=== PATIENT | male | born 1970 | race Caucasian/White ===

== ENCOUNTER 2017-10-31 19:04 | Emergency (ER) | payer MEDICAID, SELFPAY ==
[2017-10-31 19:08] VITALS: BP 138/74; PULSE 118; RESP 16; TEMP 36.4; O2SAT 96
--- NOTE | 2017-10-31 20:21 | ED.GENADUL_ITS ---
Discharge Plan Disposition Patient Disposition: HOME Condition: Stable Discharge Details Chief Complaint: Urinary Clinical Impression: Chlamydia contact, treated, Gonorrhea contact, treated Primary Care Provider: Alex Cummins ED Provider: Lisbet Sanders Home Meds and New Rx's Prescriptions: No Action No Known Home Meds RF: 0 Discharge Instructions Instructions: Chlamydia (ED), Safe Sex (ED) Additional Instructions: Encourage hydration. Please follow-up with primary care this week, call them Thursday. We will contact with any positive results from your gonorrhea/ chlamydia and tick panel that are still pending. If you develop fever/chills, chest pain, shortness of breath, penile discharge, testicular pain or other new/ worsening symptoms please seek care urgently once again. Please contact all of your recent sexual partners that may have been in the time since STD exposure. Referrals: Alex Cummins MD [Primary Care Provider] - Discharge Data Discharge Date/Time-TO BE ENTERED AT DEPARTURE: 10/31/17 22:13 Medical Decision Making MDM Narrative Medical decision making narrative: Patient presents today with chief complaint of STD exposure. Reports that recent partner was diagnosed with chlamydia. Last had sexual encounter with her 1 month ago. I did advise that he contact his other partners to discuss diagnosis. Patient will be treated prophylactically with azithromycin and ceftriaxone. Patient is also endorsing 1+ months of increased back pain, fatigue, myalgias. Unknown if he has had fevers. He reports poor appetite. Denies any abdominal pain. On exam, lungs are clear. Regular rate and rhythm. No chest pain, no shortness of breath. No abdominal pain on exam. He does endorse back pain but this seems to be chronic nature and is not acutely changed. This pain can radiate down the right leg. Patient does have her history of herpes. Denies any recent outbreak. Denies any penile discharge. No testicular pain. No rash. With his diffuse symptoms feel that baseline labs a CBC, CMP, TSH is appropriate. Also obtain HIV as the patient does have new diagnosis of presumed STD infection has had multiple partners. Also obtain a tick panel as the patient works in the [employer]. No known tick exposure, no known bull's-eye rash. Patient noted to be tachycardic at 118. He appears slightly anxious, reports anxiety around currently complaint and that I hate going to the doctors. Will reassess this. Patient was exposed to chlamydia and presumed gonococcal infection, I will be treated with 1 g of azithromycin 250 mg of IM ceftriaxone. Discussed splinted the patient is in agreement CBC, chemistry, TSH are within normal limits. STD, tick panel are pending. Discussed findings of the patient's laboratory evaluation with the patient. He is very reassured that at this point there is no acute abnormality. However, we did discuss the pending results that we are contacting him with any positive results. I did encourage him to follow-up with his primary care physician this week for reevaluation regarding his chronic change in appetite, sleep and general feeling unwell. I also reassured him that on physical exam I am not noting any acute abnormalities. He does report chronic back pain. Did have surgical intervention this past spring. It initially felt improved but reports that over the past several months his pain has began reoccurring. I did advise follow-up with his surgeon which the patient had been planning on contacting her regarding this pain anyway. I did encourage that he continue with his improved lifestyle. In an effort to try to avoid the doctor, the patient reports when he started having the symptoms he stopped smoking, began drinking more water and having a more healthy diet. However, patient has since started smoking again. I did encourage cessation. He was given strict return precautions. We will contact him regarding any positive lab results. All of his questions and concerns were addressed, he is in agreement with this plan. He will contact sexual partners to discuss his exposure. At the time of discharge heart rate was 85. HPI - General Adult General Mode of arrival: ambulatory . Date/Time Provider Initiated Documentation: 10/31/17 19:36 . Limitations to Documentation: no limitations . Information obtained by: patient and family . HPI Narrative: Patient is a 47-year-old male, coming in by son, with chief complaint of exposure to chlamydia. He reports that he was contacted earlier today by woman he was sexually active with approximately a month ago who was diagnosed with gonorrhea and chlamydia. He denies any penile discharge. Denies any testicular pain. Denies any pain in his testicles. However, the patient is endorsing overall feels like crap. States that this is been going on for the past 1-2 months. He denies any abdominal pain. States he has chronic pain in his back that radiates into the right leg. States that he had surgery on this in March and since that time his had waxing and waning discomfort. Also reports that he has chronic pain is not addressed at this time for surgery. Is unclear if he had any fevers or chills. States that his appetite has been down but denies any vomiting. Patient does have history of genital herpes. No other STD history that he is aware of. He reports he has not been tested for STDs in the past 12 years Related Data Home Medications Medication Instructions Recorded Confirmed Unknown [No Known Home Meds] 10/31/17 10/31/17 Allergies Allergy/AdvReac Type Severity Reaction Status Date / Time No Known Allergies Allergy Unverified 10/31/17 19:12 General Stated Complaint: Urinary JOSEMANUEL: 4 Review of Systems Constitutional Reports as per HPI, Reports body ache(s), Reports chills, Reports difficulty sleeping, Reports fatigue, Denies fever(s), Denies headache(s), Reports poor appetite and Denies weakness Eyes Patient Denies change in vision ENT Denies vertigo and Denies headache(s) Cardiovascular Denies chest pain, Denies chest pain at rest, Denies chest pain with activity, Denies lightheadedness and Denies dyspnea Respiratory Denies cough and Denies dyspnea Gastrointestinal Reports as per HPI Genitourinary Reports as per HPI, Denies hematuria, Denies difficulty urinating, Denies difficulty with ejaculations, Denies genital lesions, Denies genital pain, Denies flank pain, Denies penile discharge, Denies scrotal swelling, Denies testicular mass, Denies testicular pain, Denies urinary frequency and Denies urinary urgency Musculoskeletal Reports as per HPI and Reports tingling (reports chronic tingling in the right leg associated with bakc surgery, no recent change in this) Integumentary/Breasts Reports system reviewed and no additional complaints, except as docu, Denies lesions, Denies erythema and Denies rash Neurologic Reports system reviewed and no additional complaints, except as docu, Denies burning sensations, Denies vertigo, Denies headache(s), Reports tingling ( reports chronic tingling in the right leg associated with bakc surgery, no recent change in this) and Denies weakness Psychiatric Reports as per HPI, Reports abnormal sleep pattern, Reports change in appetite and Reports mood swings (associates with fatigue) Endocrine Reports fatigue [facility] Social History Smoking/Tobacco Use Status: Current every day Exam Const General: cooperative, healthy appearing, comfortable, no acute distress, well developed and well groomed Nutritional Appearance: average body habitus Orientation: alert and awake HENMT Head: normal to inspection Mouth: oral mucosae normal Throat: posterior oropharynx normal Eyes General: appearance normal, both eyes and all related structures Resp Effort & Inspection: normal respiratory effort, able to speak in complete sentences and no respiratory distress Auscultation: clear to auscultation bilaterally Cardio Rate: regular rate Rhythm: regular rhythm Heart Sounds: S1 normal and S2 normal GI Inspection: normal to inspection and non-distended Palpation: not firm, no guarding, not rigid and nontender Auscultation: normal bowel sounds Back/Spine/Pelvis Back: no CVA tenderness Thoracic/Lumbar Spine: surgical scar(s) present and pain with thoraco-lumbar ROM Skin General skin exam: no rashes or lesions noted Neuro General: alert and awake Cognition: normal cognition Speech: speech normal Gait: normal gait Motor: muscle tone normal throughout and strength 5/5 throughout Sensory Exam: no sensory deficits noted Psych Appearance: grossly normal Mental Status: mental status grossly normal Speech and Movement: speech and movement normal Mood: congruent mood Affect: normal affect Attitude: cooperative Thought Process: normal Course Vital Signs Temperature 36.4 C L 10/31/17 19:08 Pulse 118 H 10/31/17 19:08 Respiratory Rate 16 10/31/17 19:08 Blood Pressure 138/74 10/31/17 19:08 Pulse Oximetry 96 10/31/17 19:08 Temperature 36.4 C L 10/31/17 19:08 Pulse 118 H 10/31/17 19:08 Respiratory Rate 16 10/31/17 19:08 Blood Pressure 138/74 10/31/17 19:08 Pulse Oximetry 96 10/31/17 19:08
[2017-10-31 21:05] LABS: Abs Immature Grans 0.02 k/cumm (0.0-0.09); Absolute Basophil Count 0.01 k/cumm (0.0-0.2); Absolute Lymphocyte Count 2.69 k/cumm (1.2-3.4); Absolute Neutrophil Count 3.96 k/cumm (1.2-6.7); Basophils % 0.1; HCT 44.1 % (40.0-50.0); HGB 15.2 g/dL (13.5-17.5); Immature Grans % 0.3; Lymphocytes % 35.5; Mean Corp. HGB Concentration 34.5 g/dL (32.0-36.0); Mean Corpuscular Hemoglobin 30.5 pg (27.0-33.0); Mean Corpuscular Volume 88.4 fL (80-95); Mean Platelet Volume 9.6 fL (8.0-11.0); Monocytes % 7.9; Neutrophils % 52.2; Platelet Count 283 x1000/uL (130-400); RBC 4.99 m/cumm (4.50-6.00); White Blood Cell Count 7.58 k/cumm (4.4-10.8)
[2017-10-31 21:20] LABS: TSH (W/Ref FT4) 1.25 uIU/mL (0.358-3.74)
[2017-10-31 21:48] LABS: ALT 24 U/L (12-78); AST 13 U/L (15-37); Alkaline Phosphatase 82 U/L (46-116); Anion Gap 10.6 mmol/L (3-11); BUN 18 mg/dL (7-18); Bilirubin, Total 0.4 mg/dL (0.2-1.0); CO2 25.4 mmol/L (21.0-32.0); CREATININE 1.01 mg/dL (0.70-1.30); Calcium 9.1 mg/dL (8.5-10.1); Chloride 100 mmol/L (98-107); Glucose 108 mg/dL (70-100); Sodium 136 mmol/L (136-145)
[2017-10-31] MEDS: cefTRIAXone 250 MG VIAL IM (21:58)
[2017-10-31] MEDS: Azithromycin 250 MG TAB 1000 MG PO (21:58)
[2017-10-31 22:08] VITALS: BP 126/74; PULSE 85; RESP 16; O2SAT 97
[2017-11-03 10:55] LABS: Lyme Ab w Rflx to Lyme Confirm Negative
[2017-11-03 14:44] LABS: Chlamydia Result Negative; GC Result Negative
[2017-11-03 23:01] LABS: Anaplasma phagocytophilum Negative (Negative); B. miyamotoi PCR Negative (Negative); Babesia divergens/MO-1 Negative (Negative); Babesia duncani Negative (Negative); Babesia microti Negative (Negative); Ehrlichia chaffeensis Negative (Negative); Ehrlichia ewingii/canis Negative (Negative); Ehrlichia muris eauclairensis Negative (Negative)
== END 2017-10-31 22:13 | disposition home or self-care (01) ==
PROVIDERS: Emergency Provider Physician Assistant; PCP General Practice
DX: Z20.828 Contact with and (suspected) exposure to other viral communicable diseases (principal); Z20.2 Contact with and (suspected) exposure to infections with a predominantly sexual mode of transmission
CPT/HCPCS: 36415; 80053; 87491; 87591; 96372; 99284; 84443; 85025; 86618; 87798; J0696

== ENCOUNTER 2018-01-29 01:40 | Outpatient (CLI) | payer MEDICAID, SELFPAY ==
--- NOTE | 2018-01-29 10:49 | DI.RAD_ITS ---
SYMPTOM/DIAGNOSIS: BACK PAIN, M54.9, LOW BACK PAIN, M54.5, LUMBAR PARS DEFECT, PRE MRI APPROVAL LUMBAR SPINE: AP, lateral and bilateral oblique views. Comparison CT scan is 01/30/17. There is L 5 spondylolysis and grade I spondylolisthesis of L 5 on S 1. There is otherwise normal alignment. No acute fractures or subluxations are seen. The disc heights are well maintained. Small endplate osteophytes are seen at L 2-3 and L 3-4. Degenerative changes of the facets are seen at L 4-5 and L 5-S 1. IMPRESSION: L 5 spondylolysis and grade I spondylolisthesis of L 5 on S 1. Mild degenerative changes of the lumbar spine.
== END 2018-01-29 02:00 ==
PROVIDERS: PCP General Practice; Visit Provider Neurological Surgery
DX: M54.5 Low back pain (principal); M43.06 Spondylolysis, lumbar region; M43.17 Spondylolisthesis, lumbosacral region; M47.817 Spondylosis without myelopathy or radiculopathy, lumbosacral region
CPT/HCPCS: 72110

== ENCOUNTER 2018-03-01 00:56 | Outpatient (CLI) | payer MEDICAID, SELFPAY ==
--- NOTE | 2018-03-01 14:04 | DI.RAD_ITS ---
SYMPTOMS/DIAGNOSIS: POSSIBLE INJURY TO EYE WITH METALLIC FILING SINCE LAST MRI ORBITS: Frontal and lateral views. No radiopaque foreign bodies are seen in the orbits. IMPRESSION: No evidence of radiopaque foreign bodies seen in the orbits.
== END 2018-03-01 01:16 ==
PROVIDERS: PCP General Practice; Visit Provider Neurological Surgery
DX: Z13.89 Encounter for screening for other disorder (principal); M54.5 Low back pain; M79.606 Pain in leg, unspecified
CPT/HCPCS: 70030

== ENCOUNTER 2018-03-22 11:39 | Emergency (ER) | payer MEDICAID, SELFPAY ==
[2018-03-22 11:49] VITALS: BP 165/108; PULSE 82; RESP 18; TEMP 36.8; O2SAT 99
--- NOTE | 2018-03-22 11:57 | W.ED.GENAD ---
Discharge Plan Disposition Patient Disposition: HOME Condition: Stable Discharge Details Chief Complaint: PsychEval Clinical Impression: Chronic back pain, Depression Primary Care Provider: Alex Cummins ED Provider: Mary Jo Pierre Home Meds and New Rx's Prescriptions: New oxycodone-acetaminophen [Percocet] 5-325 mg tablet 1 tab PO Q8H PRN PRN (Reason: pain) Qty: 5 RF: 0 Discharge Instructions Instructions: Oxycodone/Acetaminophen (By mouth), Depression (ED), Suicide Prevention for Adults (ED), Chronic Back Pain (ED) Additional Instructions: Please return immediately to the emergency department if you develop any new or worsening symptoms or if you become otherwise concerned. It is extremely important that you follow-up with Dr. Cummins tomorrow at 9:30 AM for evaluation prior to having your MRIs with sedation as we discussed. It is also extremely important that you make an appointment to be seen in the pain clinic as soon as possible, this will require preauthorization from Dr. Cummins. Please call [phone] if you have any difficulty establishing this appointment. Referrals: Alex Cummins MD [Primary Care Provider] - Discharge Data Discharge Date/Time-TO BE ENTERED AT DEPARTURE: 03/22/18 16:33 Medical Decision Making Yayo Jacques is a 48-year-old man with history of chronic back pain presenting to the emergency department with depression and chronic back pain for years, worse in the past few months without acute change. On exam patient is very well and nontoxic appearing. He has normal neuro exam. Concern for chronic back pain and depression. Exam/history is not consistent with cauda equina syndrome, epidural abscess/hematoma, other cord compression, acute aortic pathology, other acute emergent life/limb threatening process. I do not suspect that patient has any true suicidal ideation after my discussion with him, however given his statement that he made to his PCP, plan to have mental health evaluate the patient. We will also plan for CT of the lumbar spine to look for new bony pathology given prior surgery and gradual worsening of pain. Case management involved for follow-up planning. I did speak to the patient's neurosurgeon's office staff, who stated that patient needed preop clearance for MRI with sedation, which they would then schedule at [facility]. I also did speak with Dr. Cummins, patient's PCP, who stated that he felt that patient's chronic pain would best be managed at the pain clinic. Patient scheduled for preop evaluation by Dr. Cummins tomorrow a.m. As patient had been to [facility] pain clinic before and did not feel that he had satisfactory visit, plan for patient to see pain clinic at [facility]. CT shows no acute process per radiology. Per mental health, patient statement of suicidality was manipulative, they do not have concern for risk of acute suicidality, which is consistent with my evaluation the patient. I had a lengthy discussion with the patient regarding outpatient plans, home care, return to emergency department precautions, which he verbalized understanding of and is amenable to. Medical Records Medical records reviewed: Yes I reviewed the patient's medical records. HPI General Mode of arrival: ambulatory. Date/Time Provider Initiated Documentation: 03/22/18 11:57. Limitations to Documentation: no limitations. Information obtained by: patient, RN notes reviewed and old records reviewed. HPI Narrative: Yayo Jacques is a 48-year-old man with history of chronic back pain presenting to the emergency department with continued chronic back pain. Patient saw his PCP Dr. Cummins this morning for his chronic back pain. Patient was sent to the emergency department by Dr. Cummins for evaluation for suicidality, he stated to Dr. Cummins because his back pain. Patient reports to me that he has been having chronic worsening back pain for years. 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 Patient had back surgery [address] Potter[address] Patient reports that he did have some improvement of his back pain for a few months after his surgery, however over this past summer his back pain has returned and he feels it is worse than it was before the surgery was performed. Pain has been worsening gradually over the past few months. He has continued to perform manual labor, but has not had any acute trauma. He denies any new numbness or tingling or weakness of his legs. He has had no changes in his urination or bowel habits. Patient reports that he saw his neurosurgeon in January 2018, who recommended that he have an MRI. Patient did attempt to have MRI performed, however the MRI was unable to obtain secondary to his claustrophobia. He was told that he needed to have a sedated MRI performed at [facility], however he is unsure of how or why this is supposed to be scheduled. Patient reports that his neurosurgeon has told him that she does not manage chronic pain, and he see his PCP for this. Patient reports that his PCP has told him that he should be managed for his chronic pain by pain specialist. Patient reports that he has seen a pain specialist in the past who performed injections, and this did not improve his pain anyway. Patient reports that he has been using ibuprofen and Tylenol at home with minimal improvement. Patient states to me that he has no intention of actually harming himself. Patient reports that he has a child, and would never hurt himself because of this. He states that he does not have access to firearms. He statesthat he does feel depressed by his back pain, and feels that he does not have a doctor to turn to for help. Related Data Home Medications Medication Instructions Recorded Confirmed oxycodone-acetaminophen [Percocet] 1 tab PO Q8H PRN PRN #5 tab 03/22/18 Previous Rx's Medication Instructions Recorded oxycodone-acetaminophen [Percocet] 1 tab PO Q8H PRN PRN #5 tab 03/22/18 Allergies Allergy/AdvReac Type Severity Reaction Status Date / Time No Known Allergies Allergy Unverified 03/22/18 11:53 General Stated Complaint: Nk/Back Pain JOSEMANUEL: 3 Review of Systems Review of Systems Constitutional: denies fevers Eyes: denies eye pain ENT: denies facial pain, dental pain, sore throat Cardiovascular: denies chest pain, edema Respiratory: denies SOB, cough GI: denies abdominal pain, vomiting, diarrhea, constipation : denies flank pain, urinary hesitancy/frequency/incontinence MSK: denies neck pain, myalgias, reports chronic back pain, chronic unchanged left knee pain Skin: denies rash Neuro: denies headaches, weakness, reports chronic intermittent numbness of left leg unchanged from baseline Psych: denies SI, HI, reports depression PFSH Social History Smoking/Tobacco Use Status: Current every day Exam Narrative Exam Narrative: Constitutional: well and [id number], pleasant, conversing normally HENT: head atraumatic, normocephalic normal inspection, mucous membranes moist Eyes: conjunctiva normal, sclera normal, pupils 3mm b/l Neck: no stridor, normal ROM, trachea midline Chest: normal inspection Resp: normal work of breathing, LCTAB Cardio: normal rate, normal rhythm, no murmur appreciated GI: abdomen soft, non-tender, non-distended Back: normal inspection, no rash, diffuse tenderness palpation of the lumbar spine, focal tenderness at L3-L4, diffuse tenderness to palpation of bilateral lumbar paraspinals. No thoracic tenderness. No edema Skin: warm, dry, normal color, no rash Neuro: alert, not altered, motor 5 out of 5 bilateral lower extremities, normal gait, normal tone Ext: no edema Psych: Somewhat depressed mood, normal affect, normal behavior, normal speech, good eye contact, no melanie, no hallucinations, no SI, no HI Course Vital Signs Temperature 36.8 C 03/22/18 11:49 Pulse 82 03/22/18 11:49 Respiratory Rate 18 03/22/18 11:49 Blood Pressure 165/108 H 03/22/18 11:49 Pulse Oximetry 99 03/22/18 11:49 Temperature 36.8 C 03/22/18 11:49 Temperature Source Temporal Artery Scan 03/22/18 11:49 Pulse 82 03/22/18 11:49 Respiratory Rate 18 03/22/18 11:49 Respiratory Effort Non-Labored 03/22/18 11:51 Blood Pressure 165/108 H 03/22/18 11:49 Blood Pressure Position Sitting 03/22/18 11:49 Pulse Oximetry 99 03/22/18 11:49 Oxygen Delivery Method Room Air 03/22/18 11:49 Oxygen Flow Rate 0 03/22/18 11:49 Pain Level 10 03/22/18 11:49
--- NOTE | 2018-03-22 12:20 | NUR.NOTE ---
patient sitting in view of the nurses station and friend in with patient Nursing Note:
--- NOTE | 2018-03-22 12:46 | DI.CT_ITS ---
SYMPTOMS/DIAGNOSIS: ACUTE ON CHRONIC BACK PAIN CT OF THE LUMBAR SPINE: Comparison is made with [id number]. Again noted is bilateral L 5 spondylolysis and grade I L 5 - S 1 spondylolisthesis. There is stable loss of disc height at this level and mild disc bulging. The remaining discs appear grossly intact. There is no significant disc bulging or gross evidence of a disc herniation. IMPRESSION: Stable L 5 spondylolysis and L 5 - S1 spondylolisthesis. No acute abnormality.
[2018-03-22] MEDS: oxyCODONE 5 MG TAB PO (13:13)
--- NOTE | 2018-03-22 13:26 | NUR.NOTE ---
patient reported to MD Pierre of [facility], patient moved to room 9 in safety clothes with RN provding q 15 minute safety checks Nursing Note:
--- NOTE | 2018-03-22 14:02 | PDOC.ERCMPRO ---
Care Management Progress Note 03/22-Dr. Buster Pierre requested assistance with Yayo needing a preop physical for a sedated MRI. (Thoracic spine w/o contrast, lumbar spine with and w/o contrast) Dr. Potter office is scheduling and her office requested that this CM make appt with Dr. Cummins for the preop physical. Called Dr. Cummins's office and they will see Yayo tomorrow at [address] Pierre also discussed Yayo going to the pain clinic. Called Pain clinic and spoke with Chantal. Chantal looked Yayo up and he has not been in this clinic so he will need a referral from Dr. Cummins. Called Dr. Cummins and his office will send a referral through to the pain clinic. Please see Dr. Main Pierre's note regarding pain issues. Yayo was seen in Dr. Cummins's office this morning as he has been having back pain and no medication for it. Yayo stated to Dr. Cummins that he was going to kill himself because no one was helping him. Dr. Main Pierre is medically clearing Yayo and then he will be seen by [facility]. Dr. Pierre aware of the above and in agreement with appts to date.
--- NOTE | 2018-03-22 14:43 | CMPROGNOTE_ITS ---
Care Management Progress Note 03/22-Dr. Buster Pierre requested assistance with Yayo needing a preop physical for a sedated MRI. (Thoracic spine w/o contrast, lumbar spine with and w/o contrast) Dr. Potter office is scheduling and her office requested that this CM make appt with Dr. Cummins for the preop physical. Called Dr. Cummins's office and they will see Yayo tomorrow at [address] Pierre also discussed Yayo going to the pain clinic. Called Pain clinic and spoke with Chantal. Chantal looked Yayo up and he has not been in this clinic so he will need a referral from Dr. Cummins. Called Dr. Cummins and his office will send a referral through to the pain clinic. Please see Dr. Main Pierre's note regarding pain issues. Yayo was seen in Dr. Js navarro's office this morning as he has been having back pain and no medication for it. Yayo stated to Dr. Cummins that he was going to kill himself because no one was helping him. Dr. Main Pierre is medically clearing Yayo and then he will be seen by [facility]. Dr. Pierre aware of the above and in agreement with appts to date.
--- NOTE | 2018-03-22 14:51 | NUR.NOTE ---
PATIENT TO di WITH PATIENT OBSERVER Nursing Note:
--- NOTE | 2018-03-22 15:36 | PDOC.MHCN ---
Date of service: 03/22/18 Time of Service: 15:37 Mental Health Crisis Note Presenting Issue How did you arrive at the ED and why did you come: Yayo came to [facility] upon his surgeon's recommendations due to he discussing the results of some medical procedures. This led to he reporting that he would take his life, so he ended up at [facility] emergency room. Precipitating Factors Following the efforts made by [facility] emergency room care team, he reported feeling much better about his prognosis and care plan. He denies a history of suicidal ideation, planning, or intent. He denies a history of attempts of suicide or homicide. 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 Disposition BEHAVIOR: insightful, well spoken, futuristic EYE CONTACT: good MOOD: euthymic AFFECT: full APPETITE: none reported SLEEP(trouble falling/staying asleep: none reported Plan Yayo will be released on his own. He declined mental health services and did not feel these were in any way part of his problem. He did report that he could call if he needed to, but reported he was happy with the follow-up medical appointments he now has. Therefore, he will follow-up with the medical services identified and mental health consult will come from the medical treatment community or the patient himself on an as needed basis at this time. Signature Clinician's Name/Title: Cyrus Gonzalez MA [facility] [facility]
--- NOTE | 2018-03-22 15:45 | PDOC.MHCN_ITS ---
Date of service: 03/22/18 Time of Service: 15:37 Mental Health Crisis Note Presenting Issue How did you arrive at the ED and why did you come: Yayo came to [facility] upon his surgeon's recommendations due to he discussing the results of some medical procedures. This led to he reporting that he would take his life, so he ended up at [facility] emergency room. Precipitating Factors Following the efforts made by [facility] emergency room care team, he reported feeling much better about his prognosis and care plan. He denies a history of suicidal ideation, planning, or intent. He denies a history of attempts of suicide or h omicide. 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 Disposition BEHAVIOR: insightful, well spoken, futuristic EYE CONTACT: good MOOD: euthymic AFFECT: full APPETITE: none reported SLEEP(trouble falling/staying asleep: none reported Plan Yayo will be released on his own. He declined mental health services and did not feel these were in any way part of his problem. He did report that he could call if he needed to, but reported he was happy with the follow-up medical appointments he now has. Therefore, he will follow-up with the medical services identified and mental health consult will come from the medical treatment community or the patient himself on an as needed basis at this time. Signature Clinician's Name/Title: Cyrus Gonzalez MA [facility]
--- NOTE | 2018-03-22 15:58 | NUR.NOTE ---
patient cleared by psych, patient given clothes and coffee, awaiting diagnostics Nursing Note:
--- NOTE | 2018-03-22 16:31 | NUR.NOTE ---
patient rewceived medication and follow up instruciton per MD order , patient teresa with friend Nursing Note:
[2018-03-22 16:32] VITALS: BP 158/104; PULSE 84; RESP 18; TEMP 36.4; O2SAT 97
--- NOTE | 2018-03-30 11:19 | ED.GENADUL_ITS ---
Discharge Plan Disposition Patient Disposition: HOME Condition: Stable Discharge Details Chief Complaint: PsychEval Clinical Impression: Chronic back pain, Depression Primary Care Provider: Alex Cummins ED Provider: Mary Jo Pierre Home Meds and New Rx's Prescriptions: New oxycodone-acetaminophen [Percocet] 5-325 mg tablet 1 tab PO Q8H PRN PRN (Reason: pain) Qty: 5 RF: 0 Discharge Instructions Instructions: Oxycodone/Acetaminophen (By mouth), Depression (ED), Suicide Prevention for Adults (ED), Chronic Back Pain (ED) Additional Instructions: Please return immediately to the emergency department if you develop any new or worsening symptoms or if you become otherwise concerned. It is extremely important that you follow-up with Dr. Cummins tomorrow at 9:30 AM for evaluation prior to having your MRIs with sedation as we discussed. It is also extremely important that you make an appointment to be seen in the pain clinic as soon as possible, this will require preauthorization from Dr. Cummins. Please call [phone] if you have any difficulty establishing this appointment. Referrals: Alex Cummins MD [Primary Care Provider] - Discharge Data Discharge Date/Time-TO BE ENTERED AT DEPARTURE: 03/22/18 16:33 Medical Decision Making Yayo Jacques is a 48-year-old man with history of chronic back pain presenting to the emergency department with depression and chronic back pain for years, worse in the past few months without acute change. On exam patient is very well and nontoxic appearing. He has normal neuro exam. Concern for chronic back pain and depression. Exam/history is not consistent with cauda equina syndrome, epidural abscess/hematoma, other cord compression, acute aortic pathology, other acute emergent life/limb threatening process. I do not suspect that patient has any true suicidal ideation after my discussion with him, however given his statement that he made to his PCP, plan to have mental health evaluate the patient. We will also plan for CT of the lumbar spine to look for new bony pathology given prior surgery and gradual worsening of pain. Case management involved for follow-up planning. I did speak to the patient's neurosurgeon's office staff, who stated that patient needed preop clearance for MRI with sedation, which they would then schedule at [facility]. I also did speak with Dr. Cummins, patient's PCP, who stated that he felt that patient's chronic pain would best be managed at the pain clinic. Patient scheduled for preop evaluation by Dr. Cummins tomorrow a.m. As patient had been to [facility] pain clinic before and did not feel that he had satisfactory visit, plan for patient to see pain clinic at [facility]. CT shows no acute process per radiology. Per mental health, patient statement of suicidality was manipulative, they do not have concern for risk of acute suicidality, which is consistent with my evaluation the patient. I had a lengthy discussion with the patient regarding outpatient plans, home care, return to emergency department precautions, which he verbalized understanding of and is amenable to. Medical Records Medical records reviewed: Yes I reviewed the patient's medical records. HPI General Mode of arrival: ambulatory . Date/Time Provider Initiated Documentation: 03/22/18 11:57 . Limitations to Documentation: no limitations . Information obtained by: patient, RN notes reviewed and old records reviewed . HPI Narrative: Yayo Jacques is a 48-year-old man with history of chronic back pain presenting to the emergency department with continued chronic back pain. Patient saw his PCP Dr. Cummins this morning for his chronic back pain. Patient was sent to the emergency department by Dr. Cummins for evaluation for suicidality, he stated to Dr. Cummins because his back pain. Patient reports to me that he has been having chronic worsening back pain for years. 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 Patient had back surgery [address] Potter[address] Patient reports that he did have some improvement of his back pain for a few months after his surgery, however over this past summer his back pain has returned and he feels it is worse than it was before the surgery was performed. Pain has been worsening gradually over the past few months. He has continued to perform manual labor, but has not had any acute trauma. He denies any new numbness or tingling or weakness of his legs. He has had no changes in his urination or bowel habits. Patient reports that he saw his neurosurgeon in January 2018, who recommended that he have an MRI. Patient did attempt to have MRI performed, however the MRI was unable to obtain secondary to his claustrophobia. He was told that he needed to have a sedated MRI performed at [facility], however he is unsure of how or why this is supposed to be scheduled. Patient reports that his neurosurgeon has told him that she does not manage chronic pain, and he see his PCP for this. Patient reports that his PCP has told him that he should be managed for his chronic pain by pain specialist. Patient reports that he has seen a pain specialist in the past who performed injections, and this did not improve his pain anyway. Patient reports that he has been using ibuprofen and Tylenol at home with minimal improvement. Patient states to me that he has no intention of actually harming himself. Patient reports that he has a child, and would never hurt himself because of this. He states that he does not have access to firearms. He statesthat he does feel depressed by his back pain, and feels that he does not have a doctor to turn to for help. Related Data Home Medications Medication Instructions Recorded Confirmed oxycodone-acetaminophen [Percocet] 1 tab PO Q8H PRN PRN #5 tab 03/22/18 Previous Rx's Medication Instructions Recorded oxycodone-acetaminophen [Percocet] 1 tab PO Q8H PRN PRN #5 tab 03/22/18 Allergies Allergy/AdvReac Type Severity Reaction Status Date / Time No Known Allergies Allergy Unverified 03/22/18 11:53 General Stated Complaint: Nk/Back Pain JOSEMANUEL: 3 Review of Systems Review of Systems Constitutional: denies fevers Eyes: denies eye pain ENT: denies facial pain, dental pain, sore throat Cardiovascular: denies chest pain, edema Respiratory: denies SOB, cough GI: denies abdominal pain, vomiting, diarrhea, constipation : denies flank pain, urinary hesitancy/frequency/incontinence MSK: denies neck pain, myalgias, reports chronic back pain, chronic unchanged left knee pain Skin: denies rash Neuro: denies headaches, weakness, reports chronic intermittent numbness of left leg unchanged from baseline Psych: denies SI, HI, reports depression PFSH Social History Smoking/Tobacco Use Status: Current every day Exam Narrative Exam Narrative: Constitutional: well and [id number], pleasant, conversing normally HENT: head atraumatic, normocephalic normal inspection, mucous membranes moist Eyes: conjunctiva normal, sclera normal, pupils 3mm b/l Neck: no stridor, normal ROM, trachea midline Chest: normal inspection Resp: normal work of breathing, LCTAB Cardio: normal rate, normal rhythm, no murmur appreciated GI: abdomen soft, non-tender, non-distended Back: normal inspection, no rash, diffuse tenderness palpation of the lumbar spine, focal tenderness at L3-L4, diffuse tenderness to palpation of bilateral lumbar paraspinals. No thoracic tenderness. No edema Skin: warm, dry, normal color, no rash Neuro: alert, not altered, motor 5 out of 5 bilateral lower extremities, normal gait, normal tone Ext: no edema Psych: Somewhat depressed mood, normal affect, normal behavior, normal speech, good eye contact, no melanie, no hallucinations, no SI, no HI Course Vital Signs Temperature 36.8 C 03/22/18 11:49 Pulse 82 03/22/18 11:49 Respiratory Rate 18 03/22/18 11:49 Blood Pressure 165/108 H 03/22/18 11:49 Pulse Oximetry 99 03/22/18 11:49 Temperature 36.8 C 03/22/18 11:49 Temperature Source Temporal Artery Scan 03/22/18 11:49 Pulse 82 03/22/18 11:49 Respiratory Rate 18 03/22/18 11:49 Respiratory Effort Non-Labored 03/22/18 11:51 Blood Pressure 165/108 H 03/22/18 11:49 Blood Pressure Position Sitting 03/22/18 11:49 Pulse Oximetry 99 03/22/18 11:49 Oxygen Delivery Method Room Air 03/22/18 11:49 Oxygen Flow Rate 0 03/22/18 11:49 Pain Level 10 03/22/18 11:49
== END 2018-03-22 16:33 | disposition home or self-care (01) ==
PROVIDERS: Emergency Provider Student in an Organized Health Care Education/Training Program; PCP General Practice
DX: M54.5 Low back pain (principal); F32.9 Major depressive disorder, single episode, unspecified
CPT/HCPCS: 99284; 72131

== ENCOUNTER 2018-05-18 09:09 | Outpatient (CLI) | payer MEDICAID, SELFPAY ==
[2018-05-18 09:14] VITALS: BP 132/82; PULSE 78; RESP 18; TEMP 36.7; O2SAT 98
[2018-05-18 10:05] VITALS: BP 123/83; PULSE 82; RESP 19; O2SAT 98
--- NOTE | 2018-05-18 10:05 | PDOC.PAIN ---
Pain Clinic Procedure Note Current Active Problems Problem Status Onset Lumbar radiculitis Acute Lumbar Epidural Steroid Injection Procedure Note COMMENTS: I did review his 05/06/18 evaluation with Ms. Ball in our clinic and his most recent lumbar spine MRI. NORTH HERNANDEZ has been referred to the [facility] for lumbar epidural steroid injection. The patient was greeted by the nurse who verified patients name and . Patient was then taken to the fluoroscopy suite. The patient was interviewed and the medial record reviewed. There were no medical, pharmacologic, radiographic, or other structural contraindications to attempting fluoroscopically guided lumbar epidural steroid injection. Risks and expected side effects as well as potential benefits of the procedure were reviewed and voiced concerns expressed. The patient consent form was signed and witnessed. Standard patient time-out procedure was performed. The patient was placed in the prone position on the fluoroscopy table and automated blood pressure cuff and pulse oximeter applied. The skin entry point for entering/approaching the epidural space at L5-S1 and marked. Following thorough chlorhexadine preparation of the skin and draping and 1% lidocaine infiltration of the skin entry point and subcutaneous tissues, a 18 gauge Touhy needle was placed under fluoroscopic guidance and with loss of resistance technique into the epidural space. Needle tip placement and depth were aided and confirmed by fluoroscopy. There was no paresthesia or return of blood or CSF through the needle. 1 cc's of Omnipaque 240 was injected with clear epidural spread confirmed with fluoroscopy. 80mg depomedrol was injected. There was not any unusual discomfort expressed by NORTH HERNANDEZ. Patient's vital signs were stable throughout the procedure and were as recorded in nursing records. Follow up plans and appointments were discussed with patient. Post procedure instruction was given as documented in nursing records and having met discharge criteria and was discharged from the [facility]. COMMENTS: This procedure can be completed up to 3 times per 12 months.
--- NOTE | 2018-05-18 10:10 | DI.RAD_ITS ---
SYMPTOMS/DIAGNOSIS: LUMBAR RADICULOPATHY, LUMBAR EPIDURAL STEROID INJECTION C-ARM FLUOROSCOPY: Fluoroscopy Time: 18.4 seconds C-arm fluoroscopy was utilized by Dr. Youssef. Please see Dr. Youssef's procedure note. Hardcopy shows apparent lumbar epidural injection to the right of midline at L 5 - S 1 level.
[2018-05-18] MEDS: methylPREDNISolone ACETATE 40 MG/ML VIAL IM (10:21)
[2018-05-18] MEDS: Omnipaque 240 MG/ML 50 ML BTL IJ (10:22)
== END 2018-05-18 09:29 ==
PROVIDERS: PCP General Practice; Visit Provider Preventive Medicine Occupational Medicine
DX: M54.16 Radiculopathy, lumbar region (principal)
CPT/HCPCS: 62323; 72100; J1030; Q9967

== ENCOUNTER 2018-05-29 13:57 | Emergency (ER) | payer MEDICAID, SELFPAY ==
[2018-05-29] VITALS (20 sets, daily range): BP systolic 119–137; BP diastolic 62–76; PULSE 70–96; RESP 18; TEMP 36.6–36.7; O2SAT 94–104
--- NOTE | 2018-05-29 14:18 | NUTRITION ---
yesterday morning pt woke up and coughed and immediately after coughing PT developed 10/10 headache pt has no history of headache. pt has been taking ibuprofen, claratin and sutifed pt has also been experiencing nausea and vomiting since last night he believes the nausea is from the pain
--- NOTE | 2018-05-29 14:52 | W.ED.GENAD ---
Discharge Plan Disposition Patient Disposition: HOME Condition: Improving Discharge Details Chief Complaint: Headache Clinical Impression: Headache Primary Care Provider: Alex Cummins ED Provider: Latia Mora Home Meds and New Rx's Prescriptions: Continued ibuprofen 200 mg tablet 800 mg PO TID-QID PRNRF: 0 acetaminophen 500 mg capsule 1,000 mg PO QID PRNRF: 0 gabapentin 300 mg capsule 300 mg PO DIRECTED 30 Days Qty: 102 RF: 0 Discharge Instructions Instructions: General Headache (ED) Additional Instructions: Drink plenty of fluids and get plenty of rest. Alternate Tylenol and Motrin as needed and directed for pain. Call your primary care doctor on Thursday morning to schedule a follow-up appointment for reevaluation. Return immediately to the emergency department with any worsening or new concerning symptoms. Discharge Data Discharge Physician: Latia Mora Medical Decision Making 48yo male with a history of chronic back pain and lumbar discectomy who presents with frontal headache since yesterday morning worse with coughing. Admits to vomiting one time overnight and nausea since then. Positive photophobia. Denies history of headaches. Denies fever, URI symptoms, neck pain or unilateral extremity numbness or weakness. Vitals within normal limits. Patient appears uncomfortable but nontoxic. Normal ENT exam. Sinuses nontender. No meningeal signs. He has frontal pain with movement of his head and when coughing during evaluation. Differential diagnoses includes sinusitis, tension headache, migraine, CVA, dehydration. Will place an IV, bolus IV fluids, Compazine, Benadryl and stat CT head. 1545 -- CT head negative. Will order a dose of toradol. 1600 -- Pt states he feels better. Still appears somewhat uncomfortable. We will give another liter IV fluids and obtain a CTA head and neck. Discussed with patient at length that the diagnosis of a subarachnoid hemorrhage with a negative head CT would include a lumbar puncture but patient would rather not proceed with this at this time. Will reassess. 1655 -- CTA head and neck negative. He states he feels better and has not eaten anything today. He again is refusing a lumbar puncture at this time. The patient had tray of food and reassess. 1730 -- patient states he is feeling much better and is requesting to go home. Discussed with patient that the diagnosis of a subarachnoid hemorrhage in the setting of a negative head CT would include a lumbar puncture but he states he feels better and is refusing this at this time. The risks of and disability due to a serious pathology and patient fully understands and is still declining at this time. He states he will call his primary care doctor on Thursday morning to schedule follow-up appointment for reevaluation. He is instructed to return here immediately with any worsening or new concerning symptoms Medical Records Medical records reviewed: Yes I reviewed the patient's medical records. Imaging Data Radiologic Study: Radiologist's impression: CT Head Without Contrast EXAM DATE/TIME: 05/29/2018 3:09 PM FINDINGS: Brain: Normal. No hemorrhage. No significant white matter disease. No edema. Ventricles: Normal. No ventriculomegaly. Bones/joints: There is a displaced fracture of the left lamina papyracea of unknown age Sinuses: Visualized sinuses are unremarkable. No acute sinusitis. Mastoid air cells: Visualized mastoid air cells are unremarkable. No mastoid effusion. Soft tissues: Unremarkable. IMPRESSION: No acute intracranial hemorrhage Radiologic Study #2: Radiologist's impression: CT Angiography Head With Contrast EXAM DATE/TIME: 05/29/2018 4:11 PM FINDINGS: Right internal carotid artery: Intracranial segment is patent with no evidence of hemodynamically significant stenosis. No aneurysm. Right anterior cerebral artery: No occlusion or significant stenosis. No aneurysm. Right middle cerebral artery: No occlusion or significant stenosis. No aneurysm. Right posterior cerebral artery: No occlusion or significant stenosis. No aneurysm. Right vertebral artery: No occlusion or significant stenosis. No aneurysm. Left internal carotid artery: Intracranial segment is patent with no evidence of hemodynamically significant stenosis. No aneurysm. Left anterior cerebral artery: No occlusion or significant stenosis. No aneurysm. Left middle cerebral artery: No occlusion or significant stenosis. No aneurysm. Left posterior cerebral artery: No occlusion or significant stenosis. No aneurysm. Left vertebral artery: No occlusion or significant stenosis. No aneurysm. Basilar artery: No occlusion or significant stenosis. No aneurysm. IMPRESSION: No acute findings. CT Angiography Neck With Contrast EXAM DATE/TIME: 05/29/2018 4:11 PM FINDINGS: VASCULATURE: Right common carotid artery: No significant stenosis. No dissection or occlusion. Right internal carotid artery: Extracranial segment is patent with no significant stenosis (0% stenosis by NASCET criteria). No dissection or occlusion. Right external carotid artery: No occlusion or significant stenosis. Right vertebral artery: No significant stenosis. No dissection or occlusion. Left common carotid artery: No significant stenosis. No dissection or occlusion. Left internal carotid artery: Extracranial segment is patent with no significant stenosis (0% stenosis by NASCET criteria). No dissection or occlusion. Left external carotid artery: No occlusion or significant stenosis. Left vertebral artery: No significant stenosis. No dissection or occlusion. NECK: Bones/joints: No acute fracture. Soft tissues: Unremarkable. Lungs: Linear scarring in the right upper lobe. IMPRESSION: No acute findings. Lab Data Lab results reviewed: Yes I reviewed the patient's lab results. HPI General Mode of arrival: ambulatory. Date/Time Provider Initiated Documentation: 05/29/18 14:02. Limitations to Documentation: no limitations. Information obtained by: patient. HPI Narrative: Patient is a 48-year-old male with a history of chronic back pain and lumbar discectomy who presents with frontal headache since yesterday morning. Patient states he awoke in the morning and coughed and felt sharp pain in his forehead and the front of his head. He states he took Sudafed, Motrin and Tylenol yesterday without relief. He also took Motrin and Sudafed today without relief. States his headache is 10/10. He admits to nausea and vomiting once earlier this morning. He admits to some blurry vision since yesterday. He does also admit to photophobia. He denies known fever, significant cough, chest pain, shortness of breath, dizziness, neck pain, unilateral extremity numbness or weakness. He states he received a steroid injection in his lower back 2 weeks ago for his chronic back pain. Related Data Home Medications Medication Instructions Recorded Confirmed acetaminophen 500 mg capsule 1,000 mg PO QID PRN cap 05/06/18 05/29/18 gabapentin 300 mg capsule 300 mg PO DIRECTED 30 Days #102 05/06/18 05/29/18 cap ibuprofen 200 mg tablet 800 mg PO TID-QID PRN tab 05/06/18 05/29/18 Previous Rx's Medication Instructions Recorded gabapentin 300 mg capsule 300 mg PO DIRECTED 30 Days #102 05/06/18 cap Allergies Allergy/AdvReac Type Severity Reaction Status Date / Time No Known Allergies Allergy Unverified 05/29/18 14:24 General Stated Complaint: Headache JOSEMANUEL: 3 Review of Systems Review of Systems All systems reviewed & are unremarkable except as noted in HPI and below Constitutional Reports as per HPI, Denies chills, Denies fever(s) and Reports headache(s) Eyes Denies blurry vision ENT Denies dizziness, Reports headache(s), Denies sore throat and Denies throat swelling Cardiovascular Denies chest pain and Denies dyspnea Respiratory Denies cough and Denies dyspnea Gastrointestinal Denies abdominal pain, Denies diarrhea and Denies vomiting Genitourinary Denies hematuria and Denies dysuria Musculoskeletal Denies back pain and Denies numbness Integumentary/Breasts Denies lesions and Denies rash Neurologic Denies dizziness, Reports headache(s), Denies focal weakness and Denies numbness Allergic/Immunologic Denies throat swelling [facility] Medical History Back pain (Acute) Eye injury (Acute) Leg pain, posterior (Acute) Low back pain (Acute) Lumbar pars defect (Acute) Pain of left scapula (Acute) Right leg pain (Acute) Right thigh pain (Acute) Spine pain (Acute) Thoracic back pain (Acute) Surgical History H/O discectomy (Acute) Social History Smoking/Tobacco Use Status: Current every day Tobacco Type: cigarettes Alcohol Intake: never Drug use: Rarely Substance use type: marijuana Household members: children and friend(s) Housing: house What is your relationship status?: Panel score (0-1 are the most socially isolated patients): 0 What type of physical activity do you participate in: additional Details: [employer] stretches Do you feel safe at home: Yes Do you feel safe in your relationship?: Yes Exam Const General: cooperative and acute distress (uncomfortable in pain ) mild Orientation: alert, awake and oriented x3 HENMT Head: normal to inspection Ears: hearing grossly normal bilaterally, external ears normal and TM's normal bilaterally General nose exam: external nose normal Face and sinus: normal facial exam and sinuses nontender Mouth: oral mucosae normal Teeth and gingiva: dentition normal Throat: posterior oropharynx normal Eyes General: appearance normal, both eyes and all related structures Eyelids: eyelids normal Pupils: PERRL EOM: EOM intact bilaterally Neck Neck: normal visual inspection Lymphatic: no lymphadenopathy noted Chest Chest: normal inspection of the chest Resp Effort & Inspection: normal respiratory effort and able to speak in complete sentences Auscultation: clear to auscultation bilaterally Cardio Rate: regular rate Rhythm: regular rhythm GI Inspection: normal to inspection Palpation: soft, not firm, no guarding, no hepatosplenomegaly, no masses and nontender Auscultation: normal bowel sounds Skin General skin exam: no rashes or lesions noted Neuro General: alert, awake, oriented x3, moves all extremities, no meningeal signs and no focal motor deficits Cognition: normal cognition Speech: speech normal Gait: normal gait Motor: muscle tone normal throughout and strength 5/5 throughout Sensory Exam: no sensory deficits noted Extrem General: normal to inspection, full ROM, normal capillary refill and no edema Psych Appearance: grossly normal Mental Status: mental status grossly normal Speech and Movement: speech and movement normal Affect: normal affect Thought Process: normal Course Vital Signs Temperature 79.9 F L 05/29/18 14:23 Pulse 96 H 05/29/18 14:23 Respiratory Rate 18 05/29/18 14:23 Blood Pressure 119/62 05/29/18 14:23 Pulse Oximetry 104 H 05/29/18 14:23 Temperature 79.9 F L 05/29/18 14:23 Temperature Source Skin 05/29/18 14:23 Pulse 96 H 05/29/18 14:23 Respiratory Rate 18 05/29/18 14:23 Respiratory Effort 05/29/18 14:25 Blood Pressure 119/62 05/29/18 14:23 Blood Pressure Position Supine 05/29/18 14:23 Pulse Oximetry 104 H 05/29/18 14:23 Oxygen Delivery Method Room Air 05/29/18 14:23 Oxygen Flow Rate 0 05/29/18 14:23 Pain Level 10 05/29/18 14:23
--- NOTE | 2018-05-29 15:20 | DI.CT_ITS ---
SYMPTOM/DIAGNOSIS: FRONTAL HEADACHE, ? RUPTURED ANEURYSM, OR CVA OR BLEED NONCONTRAST HEAD CT: No priors. A noncontrast cranial CT was performed. The ventricular system is normal in appearance. There is no evidence of an intracranial mass lesion. There is no evidence of a subdural or epidural hematoma. No focal areas of decreased attenuation are seen. CONCLUSION: Normal noncontrast Cranial CT. HEAD AND NECK CTA: CT angiography was performed with multi slice acquisition and multi planar and 3D reconstruction. CT angiography of the head and neck was performed according to the normal protocol. NECK: The visualized portion of the thoracic aorta is of normal caliber and unremarkable. The common carotid arteries are unremarkable. No evidence of dissection, occlusion or significant stenosis. The extracranial portion of the internal carotid arteries are unremarkable without evidence of dissection, aneurysm or occlusion. The external carotid arteries are unremarkable without evidence of occlusion or significant stenosis. The vertebral arteries are unremarkable. No evidence of dissection, aneurysm, occlusion or significant stenosis is present. The soft tissues are grossly unremarkable. There are mild degenerative changes in the cervical spine, particularly at C 5-6. There is scarring or atelectasis in the right upper lobe. IMPRESSION: No acute vascular abnormality. BRAIN: The intracranial segment of the internal carotid arteries are unremarkable. No evidence of aneurysm, occlusion or significant stenosis. The anterior cerebral arteries are unremarkable without evidence of aneurysm, occlusion or significant stenosis. The middle cerebral arteries are unremarkable without evidence of aneurysm, occlusion or significant stenosis. The posterior cerebral arteries are unremarkable without evidence of occlusion, aneurysm or significant stenosis. The distal vertebral arteries and the basilar artery are unremarkable without evidence of occlusion, aneurysm, dissection or significant stenosis. IMPRESSION: No acute abnormality.
[2018-05-29 15:28] LABS: Abs Immature Grans 0.01 k/cumm (0.0-0.09); Absolute Basophil Count 0.02 k/cumm (0.0-0.2); Absolute Eosinophil Count 0.06 k/cumm (0.0-0.7); Absolute Lymphocyte Count 1.37 k/cumm (1.2-3.4); Absolute Monocyte Count 0.72 k/cumm (0.11-0.7); Absolute Neutrophil Count 6.33 k/cumm (1.2-6.7); Basophils % 0.2; Eosinophils % 0.7; HCT 44.1 % (40.0-50.0); HGB 15.4 g/dL (13.5-17.5); Immature Grans % 0.1; Lymphocytes % 16.1; Mean Corp. HGB Concentration 34.9 g/dL (32.0-36.0); Mean Corpuscular Hemoglobin 30.9 pg (27.0-33.0); Mean Corpuscular Volume 88.4 fL (80-95); Mean Platelet Volume 9.6 fL (8.0-11.0); Monocytes % 8.5; Neutrophils % 74.4; Platelet Count 310 x1000/uL (130-400); RBC 4.99 m/cumm (4.50-6.00); RBC Distribution Width 13.8 % (11.8-14.1); White Blood Cell Count 8.51 k/cumm (4.4-10.8)
[2018-05-29] MEDS: diphenhydrAMINE 50 MG/ML VIAL 25 MG IVP (15:35)
[2018-05-29] MEDS: Normal Saline 1,000 ML 1000 ML IV (15:36)
[2018-05-29] MEDS: Prochlorperazine 10 MG/2 ML VIAL IVP (15:36)
[2018-05-29 15:44] LABS: Anion Gap 12.6 mmol/L (3-11); BUN 14 mg/dL (7-18); CO2 25.4 mmol/L (21.0-32.0); CREATININE 0.97 mg/dL (0.70-1.30); Calcium 9.4 mg/dL (8.5-10.1); Chloride 100 mmol/L (98-107); Glucose 99 mg/dL (70-100); Potassium 3.8 mmol/L (3.5-5.1); Sodium 138 mmol/L (136-145)
--- NOTE | 2018-05-29 15:47 | DI.VRAD_ITS ---
EXAM: CT Head Without Contrast EXAM DATE/TIME: 05/29/2018 3:09 PM CLINICAL HISTORY: 48 years old, male; Signs and symptoms; Other: Frontal headache, R/O acute process/cva/bleed TECHNIQUE: Imaging protocol: Axial computed tomography images of the head/brain without contrast. Coronal and sagittal reformatted images were created and reviewed. STROKE PROTOCOL was implemented. Radiation optimization: All CT scans at this facility use at least one of these dose optimization techniques: automated exposure control; mA and/or kV adjustment per patient size (includes targeted exams where dose is matched to clinical indication); or iterative reconstruction. COMPARISON: No relevant prior studies available. FINDINGS: Brain: Normal. No hemorrhage. No significant white matter disease. No edema. Ventricles: Normal. No ventriculomegaly. Bones/joints: There is a displaced fracture of the left lamina papyracea of unknown age Sinuses: Visualized sinuses are unremarkable. No acute sinusitis. Mastoid air cells: Visualized mastoid air cells are unremarkable. No mastoid effusion. Soft tissues: Unremarkable. IMPRESSION: No acute intracranial hemorrhage ASSESSMENT: ASPECTS ([place] Stroke Program Early CT Score) is 10 Dictated and Authenticated by: Oskar Ly MD. Ordering:TIMOTEO Jeffery MD
[2018-05-29] MEDS: Ketorolac 30 MG/ML VIAL IVP (16:01)
[2018-05-29] MEDS: Omnipaque 350 MG/ML 100 ML BTL IJ (16:16)
--- NOTE | 2018-05-29 16:53 | DI.VRAD_ITS ---
EXAM: CT Angiography Head With Contrast EXAM DATE/TIME: 05/29/2018 4:11 PM CLINICAL HISTORY: 48 years old, male; Signs and symptoms; Other: Frontal headache, R/O aneurysm TECHNIQUE: Imaging protocol: Axial computed tomographic angiography images of the head with intravenous contrast using CT angiography protocol. 3D rendering: MIP reconstructed images were created and reviewed. Radiation optimization: All CT scans at this facility use at least one of these dose optimization techniques: automated exposure control; mA and/or kV adjustment per patient size (includes targeted exams where dose is matched to clinical indication); or iterative reconstruction. Contrast material: Omnipaque 350 Contrast volume: 85 ml Contrast route: IV COMPARISON: CT HEAD WO 05/29/2018 3:13 PM FINDINGS: Right internal carotid artery: Intracranial segment is patent with no evidence of hemodynamically significant stenosis. No aneurysm. Right anterior cerebral artery: No occlusion or significant stenosis. No aneurysm. Right middle cerebral artery: No occlusion or significant stenosis. No aneurysm. Right posterior cerebral artery: No occlusion or significant stenosis. No aneurysm. Right vertebral artery: No occlusion or significant stenosis. No aneurysm. Left internal carotid artery: Intracranial segment is patent with no evidence of hemodynamically significant stenosis. No aneurysm. Left anterior cerebral artery: No occlusion or significant stenosis. No aneurysm. Left middle cerebral artery: No occlusion or significant stenosis. No aneurysm. Left posterior cerebral artery: No occlusion or significant stenosis. No aneurysm. Left vertebral artery: No occlusion or significant stenosis. No aneurysm. Basilar artery: No occlusion or significant stenosis. No aneurysm. IMPRESSION: No acute findings. EXAM: CT Angiography Neck With Contrast EXAM DATE/TIME: 05/29/2018 4:11 PM CLINICAL HISTORY: 48 years old, male; Signs and symptoms; Other: Frontal headache, R/O aneurysm TECHNIQUE: Imaging protocol: Axial computed tomographic angiography images of the neck with intravenous contrast using CT angiography protocol. 3D rendering: MIP reconstructed images were created and reviewed. Radiation optimization: All CT scans at this facility use at least one of these dose optimization techniques: automated exposure control; mA and/or kV adjustment per patient size (includes targeted exams where dose is matched to clinical indication); or iterative reconstruction. COMPARISON: CT HEAD WO 05/29/2018 3:13 PM FINDINGS: VASCULATURE: Right common carotid artery: No significant stenosis. No dissection or occlusion. Right internal carotid artery: Extracranial segment is patent with no significant stenosis (0% stenosis by NASCET criteria). No dissection or occlusion. Right external carotid artery: No occlusion or significant stenosis. Right vertebral artery: No significant stenosis. No dissection or occlusion. Left common carotid artery: No significant stenosis. No dissection or occlusion. Left internal carotid artery: Extracranial segment is patent with no significant stenosis (0% stenosis by NASCET criteria). No dissection or occlusion. Left external carotid artery: No occlusion or significant stenosis. Left vertebral artery: No significant stenosis. No dissection or occlusion. NECK: Bones/joints: No acute fracture. Soft tissues: Unremarkable. Lungs: Linear scarring in the right upper lobe. IMPRESSION: No acute findings. COMMENT: Reference per NASCET criteria for degree of stenosis: Mild: less than 50% stenosis. Moderate: 50-69% stenosis. Severe: 70-94% stenosis. Near occlusion: 95-99% stenosis. Dictated and Authenticated by: Eddie Montaño MD. Ordering:TIMOTEO Jeffery MD
== END 2018-05-29 17:51 | disposition home or self-care (01) ==
PROVIDERS: Emergency Provider Physician Assistant; PCP General Practice
DX: R51 Headache (principal)
CPT/HCPCS: 70496; 70498; 80048; 96361; 96374; 96375; 99285; 70450; 85025; 99284; J0780; J1200; J1885; J3490

== ENCOUNTER 2019-01-04 21:24 | Emergency (ER) | payer MEDICAID, SELFPAY ==
[2019-01-04] VITALS (7 sets, daily range): BP systolic 125–143; BP diastolic 58–92; PULSE 59–90; RESP 16–29; TEMP 36.7; O2SAT 89–100
--- NOTE | 2019-01-04 21:40 | ED.GENADUL_ITS ---
Discharge Plan Disposition Patient Disposition: HOME Condition: Good Discharge Details Chief Complaint: Allergic Clinical Impression: Adverse reaction to drug, Chronic back pain, Urinary retention Primary Care Provider: Alex Cummins ED Provider: Norman Swanson Mantador Ericks and New Rx's Prescriptions: Continued ibuprofen 200 mg tablet 800 mg PO TID-QID PRNRF: 0 acetaminophen 500 mg capsule 1,000 mg PO QID PRNRF: 0 Discharge Instructions Additional Instructions: Do not take duloxetine in the future. Do not work or drive today. Will need to follow-up with pain clinic for further management of back pain. Will need to follow-up with primary care in regards to urinary retention and enlarged prostate. Return to ED for any recurrent symptoms of feeling unsafe, anxious, agitated. Return to ED for inability to urinate. Referrals: Alex Cummins MD [Primary Care Provider] - Discharge Data Discharge Date/Time-TO BE ENTERED AT DEPARTURE: 01/05/19 10:55 Medical Decision Making <JENNI Mathews - Last Filed: 01/05/19 22:42> Patient is a 48-year-old male history of chronic back pain presenting today with adverse reaction to medication. Around 2 PM he took his first dose of Cymbalta a few hours later became acutely agitated, was hyperventilating, suicidal. Based on the piece together history over the past few hours the patient and his ex-, patient seems to have forgotten some of the events. He had reported to multiple people that he was suicidal and was threatening to shoot himself with a gun. Patient does have access to firearms. He is waffling between being agitated, anxious and crying. Appears very agitated. He is not ever had issues like this historically. Denies any previous suicidality or suicide attempts. His ex- agrees with this. He does not have a known history of depression or anxiety. On exam, patient does appear acutely agitated and anxious. He is hyperventilating. Currently endorsing tingling in his hands and face going along with hyperventilation likely associated with his anxiety. His history is most concerning for adverse reaction to Cymbalta. We will give IV Ativan. Patient does appear improved after IV Ativan. He is not disclosing his continued thoughts of suicidality. This seems to be primarily around frustration regarding his persistent pain in his back that has been quite debilitating for the patient. He does report that he has been referred to multiple specialists. He is undergone back surgery historically at [facility] and despite this continues to have severe pain. He was referred to the pain specialist who have tried injections in different medications. He states that he has had limited results with the injections. States that he had adverse reaction to gabapentin and now is having difficulty with his Cymbalta. 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 Patient does seem to have good intent, is concerned regarding his child's well-being as well as his employment but especially regarding his persistent pain. Is attempting to get set up with primary care. Last had imaging of his back one year ago. No acute change in his back pain recently. Patient continues to be agitated and is wanting to go to sleep. Is he was endorsing some mild nausea, which with the nausea and his persistent agitation with Benadryl. Patient sleeping Patient became acutely agitated again. Is now reporting that he needs to urinate. More Ativan will be given. Patient was having a difficult time urinating and a postvoid residual was obtained showing over 600 cc. Catheter will be placed. This may be contributing to some of the patient's back pain. Catheter placed by nursing staff. They did note difficulty passing the catheter over the prostate. Given the patient's current mental state, do not feel that doing a prostate exam at this point is appropriate. However, I will recommend this be followed up with his primary care half-life of Cymbalta is 10 hours prior to date. Plan to keep patient in the department for that time. He will need to continue to be monitored. I have requested a patient observer as he is actively suicidal. However, I feel that this suicidality is likely linked to adverse reaction to the medication based on his history. Plan to monitor medication wear off and have the patient evaluated by mental health. At the end of my shift, care was transitioned to Dr. Swanson with reevaluation, disposition pending. <Norman Swanson MD - Last Filed: 01/05/19 08:01> Patient signed out to me overnight after presenting with adverse reaction to Cymbalta. He has been sleeping most of the night without issue after receiving Ativan and Benadryl. This morning he feels much better. He denies any thoughts of suicide. He is able to recollect a fair amount of events last night. He is clear in mentation now. He would like to go home. CPSO released. Ex has visited this morning and is okay with taking home after she does something for work. Patient would like Zamudio discontinued. He does acknowledge that he has had issues with urinary retention in the past. Will d/c Zamudio while patient waiting for ride home. Patient will need follow up with pain clinic and with PCP. Return to ED for recurrent unsafe thoughts, anxiety, inability to urinate, other concerns. HPI <JENNI Mathews - Last Filed: 01/05/19 22:42> General Mode of arrival: EMS . Date/Time Provider Initiated Documentation: 01/04/19 21:27 . Limitations to Documentation: no limitations . Information obtained by: patient and RN notes reviewed . HPI Narrative: Patient is a 48-year-old male, brought in via EMS, with chief complaint adverse reaction to medication. Patient has a long-standing history of severe back pain for which he sees the pain clinic. He was seen by them today at which time patient was started on Cymbalta. Reports that he took his first dosing of Cymbalta at 2 PM. Few hours after taking this, he suddenly became agitated, suicidal, anxious, and noted tingling in the bilateral hands, face. He voiced his suicidal ideations, in particular, patient voiced that he was going to shoot himself with a gun. Patient denies any lipids at baseline. His ex- is with him corroborates his long-standing back pain and that typically he is not suicidal or expressing his thoughts. Related Data Home Medications Medication Instructions Recorded Confirmed acetaminophen 500 mg capsule 1,000 mg PO QID PRN cap 05/06/18 01/04/19 ibuprofen 200 mg tablet 800 mg PO TID-QID PRN tab 05/06/18 01/04/19 Allergies Allergy/AdvReac Type Severity Reaction Status Date / Time duloxetine AdvReac Severe Other (See Verified 01/05/19 07:27 Comment) gabapentin AdvReac Intermediate Unverified 01/04/19 22:42 General Stated Complaint: Allergic JOSEMANUEL: 3 Review of Systems <JENNI Mathews - Last Filed: 01/05/19 22:42> Constitutional Constitutional: Reports as per HPI, Denies chills, Denies fatigue, Denies fever(s), Denies headache(s) and Denies weakness Eyes Eyes: Denies change in vision ENT Ears, Nose, Mouth, and Throat: Denies headache(s) Cardiovascular Cardiovascular: Reports as per HPI, Denies chest pain, Denies lightheadedness, Denies dyspnea and Denies dyspnea on exertion Respiratory Respiratory: Reports as per HPI, Denies cough, Denies dyspnea and Denies dyspnea on exertion Gastrointestinal Gastrointestinal: Reports as per HPI, Denies abdominal pain, Denies change in bowel habits, Denies nausea and Denies vomiting Genitourinary Genitourinary: Denies system reviewed and no additional complaints, except as docu (denies any change in urinary habits) Musculoskeletal Musculoskeletal: Denies abnormal gait and Reports tingling (in extremities and face) Integumentary/Breasts Skin/Breast: Reports as per HPI and Denies rash Neurologic Neurologic: Denies abnormal movements, Denies abnormal speech, Denies abnormal gait, Denies headache(s), Reports tingling (in extremities and face), Denies paresthesias and Denies weakness Psychiatric Psychiatric: Reports anxiety, Reports depression, Reports difficulty concentrating, Denies auditory hallucinations, Reports irritability, Denies paranoia, Denies hallucinations, Denies homicidal ideation and Reports suicidal ideation (thoughts of shooting himself since taking medicaiton) Endocrine Endocrine: Denies fatigue PFS <JENNI Mathews - Last Filed: 01/05/19 22:42> Medical History Back pain (Acute) Eye injury (Acute) Leg pain, posterior (Acute) Low back pain (Acute) Lumbar pars defect (Acute) Pain of left scapula (Acute) Right leg pain (Acute) Right thigh pain (Acute) Spine pain (Acute) Thoracic back pain (Acute) Surgical History H/O discectomy (Acute) Social History Smoking/Tobacco Use Status: Current every day Tobacco Type: cigarettes Alcohol Intake: never Drug use: Rarely Substance use type: marijuana, heroin and other Details: Pt states he used herion yesterday. Fentanyl 5 days ago. Household members: children and friend(s) Housing: house What is your relationship status?: Panel score (0-1 are the most socially isolated patients): 0 What type of physical activity do you participate in: additional Details: [employer] stretches Do you feel safe at home: Yes Do you feel safe in your relationship?: Yes Additional Social history: above per chart history. Unable to answer privately Exam <JENNI Mathews - Last Filed: 01/05/19 22:42> Const General: cooperative, well developed, well groomed and acute distress mild (patient hyperventilating, appears anxious) Nutritional Appearance: average body habitus and well nourished Orientation: alert and awake Eyes General: appearance normal, both eyes and all related structures Resp Effort & Inspection: normal respiratory effort, able to speak in complete sentences and no respiratory distress Auscultation: clear to auscultation bilaterally, no rales, no rhonchi and no wheezes Cardio Rate: regular rate Rhythm: regular rhythm Heart Sounds: S1 normal and S2 normal GI Inspection: normal to inspection Palpation: soft, no hepatosplenomegaly, no guarding, not rigid and nontender Skin General skin exam: no rashes or lesions noted Trauma: no lacerations or abrasions Neuro General: alert and awake Cognition: normal cognition Speech: speech normal Gait: normal gait Psych Appearance: grossly normal and well kempt Mental Status: mental status grossly normal Speech and Movement: agitated Mood: anxious mood Affect: labile affect and anxious affect Attitude: guarded Thought Process: normal Thought Content: suicidality Insight: limited Judgment: limited Course <JENNI Mathews - Last Filed: 01/05/19 22:42> Vital Signs Vital signs: Vital Signs Temperature 36.7 C 01/04/19 21:23 Pulse 73 01/04/19 21:23 Respiratory Rate 28 H 01/04/19 21:23 Blood Pressure 143/79 H 01/04/19 21:23 Pulse Oximetry 100 01/04/19 21:23 Temperature 36.7 C 01/04/19 21:23 Temperature Source Skin 01/04/19 21:23 Pulse 73 01/04/19 21:23 Respiratory Rate 28 H 01/04/19 21:23 Blood Pressure 143/79 H 01/04/19 21:23 Pulse Oximetry 100 01/04/19 21:23 Oxygen Delivery Method Room Air 01/04/19 21:23 Oxygen Flow Rate 0 01/04/19 21:23 Pain Level 10 01/04/19 21:23 Comment 01/04/19 21:23 Sign Out <JENNI Mathews - Last Filed: 01/05/19 22:42> Sign Out Data: Sign Out Comment: Care transitioned to Dr. Swanson. Patient will need continued monitoring after adverse reaction to Cymbalta resulting in agitation, suicidality. Patient is also noted to have urinary retention while here. No other evidence to suggest cauda equina. Symptoms more consistent with enlarged prostate. Catheter is in place. Patient is required Ativan to help with his agitation and is received IV Benadryl. Currently sleeping and resting comfortably. Patient observer is present. Will need mental-health evaluation. No previous history of suicidality or anxiety/depression. Last updated by Lisbet Sanders PA at 01/05/19 00:11
[2019-01-04] MEDS: LORazepam 2 MG/ML VIAL 1 MG IVP (21:42)
[2019-01-04] MEDS: diphenhydrAMINE 50 MG/ML VIAL 25 MG IVP (22:24)
[2019-01-04] MEDS: LORazepam 2 MG/ML VIAL (23:10)
[2019-01-05] VITALS (67 sets, daily range): BP systolic 105–157; BP diastolic 60–92; PULSE 56–117; RESP 0–35; TEMP 37.1; O2SAT 95–97
[2019-01-05 00:12] LABS: Bilirubin Negative (Negative); Blood Negative (Negative); Clarity Clear (Clear); Glucose Negative (Negative); Ketones Negative (Negative); Leukocyte Esterase Negative (Negative); Nitrite Negative (Negative); Urobilinogen 0.2 EU/dL (Up TO 0.2); pH 7.5 (5-8)
--- NOTE | 2019-01-05 00:15 | NUR.NOTE ---
Nursing Note: Pt changed into hospital gown- has hough catheter and not medically cleared. Provider aware and agrees with this. Pt's belongings secured at nurse's station- multiple lighters, hollow pens and small amount (approx 40$) alvarez put into plastic container and labeled with pt label- initialled by this nurse and KARLEE Murillo tech. CPSO in room 1:1 direct observation. Pt calm, offered food and drink. Will continue to monitor.
== END 2019-01-05 10:55 | disposition home or self-care (01) ==
PROVIDERS: Physician Assistant; Emergency Provider Emergency Medicine; PCP General Practice
DX: T43.505A Adverse effect of unspecified antipsychotics and neuroleptics, initial encounter (principal); G89.29 Other chronic pain; M54.9 Dorsalgia, unspecified; R33.9 Retention of urine, unspecified; R45.851 Suicidal ideations
CPT/HCPCS: 51702; 96374; 96375; 99285; 81003; 99284; J1200; J2060

== ENCOUNTER 2019-03-02 13:01 | Emergency (ER) | payer MEDICAID, SELFPAY ==
[2019-03-02] VITALS (26 sets, daily range): BP systolic 99–136; BP diastolic 55–73; PULSE 60–100; RESP 18–35; TEMP 36.8; O2SAT 97–100
--- NOTE | 2019-03-02 13:31 | ED.GENADUL_ITS ---
Discharge Plan Disposition Patient Disposition: HOME Condition: Improving Discharge Details Chief Complaint: AMS/LOC Clinical Impression: Altered mental status Primary Care Provider: Alex Cummins ED Provider: John Guerrero Home Meds and New Rx's Prescriptions: No Action ibuprofen 200 mg tablet 800 mg PO TID-QID PRNRF: 0 acetaminophen 500 mg capsule 1,000 mg PO QID PRNRF: 0 Discharge Instructions Instructions: Altered Mental Status (ED) Additional Instructions: 1. Drink plenty of fluids. 2. Continue all medications as prescribed. 3. Acetaminophen 1000mg every 4 hours (up to 5 time a day) and/or ibuprofen 600mg every 6 hours as needed for fever or pain. Return to the Emergency Department (ED) if your condition worsens, does not improve as expected, or for ANY other concerns. Specifically, return if you have new or uncontrolled pain, worsening fever, difficulty breathing, vomiting, or are unable to drink fluids. Discharge Data Discharge Date/Time-TO BE ENTERED AT DEPARTURE: 03/02/19 16:04 Medical Decision Making 49-year-old past medical history which includes chronic back pain who presents with somnolence/altered mentation. According to the patient, he has had no heat in his house and has been unable to sleep. He denies exposure to carbon monoxide or other toxic ingestion. He has no other constitutional complaints. Nonfocal exam, normal EKG, normal labs. Clinically improved on reevaluation. Discharged home with a plan for outpatient PCP follow-up. Given usual customary return instructions prior to discharge. Medical Records Medical records reviewed: Yes I reviewed the patient's medical records. Lab Data Lab results reviewed: Yes I reviewed the patient's lab results. Lab results narrative: Lab Results 03/02/19 03/02/19 03/02/19 Range/Units 13:25 13:25 13:25 WBC 8.92 (4.4-10.8) k/cumm RBC 4.60 (4.50-6.00) m/cumm Hgb 14.0 (13.5-17.5) g/dL Hct 40.6 (40.0-50.0) % MCV 88.3 (80-95) fL MCH 30.4 (27.0-33.0) pg MCHC 34.5 (32.0-36.0) g/dL RDW 13.3 (11.8-14.1) % Plt Count 349 (130-400) x1000/uL MPV 9.4 (8.0-11.0) fL Immature Gran % 0.1 % Neutrophils % 84.3 Lymphocytes % 9.4 Monocytes % 5.9 Eosinophils % 0.2 Basophils % 0.1 Absolute Neutrophils 7.51 H (1.2-6.7) k/cumm Absolute Lymphocytes 0.84 L (1.2-3.4) k/cumm Absolute Monocytes 0.53 (0.11-0.7) k/cumm Absolute Eosinophils 0.02 (0.0-0.7) k/cumm Absolute Basophils 0.01 (0.0-0.2) k/cumm Carboxyhemoglobin % Sodium 143 (136-145) mmol/L Potassium 4.1 (3.5-5.1) mmol/L Chloride 104 (98-107) mmol/L Carbon Dioxide 30.6 (21.0-32.0) mmol/L Anion Gap 8.4 (3-11) mmol/L BUN 19 H (7-18) mg/dL Creatinine 0.91 (0.70-1.30) mg/dL Estimated GFR/1.73 m2 >= 60.00 (mL/min/1.73m2) Glucose 98 (74-106) mg/dL Calcium 9.2 (8.5-10.1) mg/dL Magnesium 1.9 (1.8-2.4) mg/dL Total Bilirubin 0.3 (0.2-1.0) mg/dL AST 14 L (15-37) U/L ALT 19 (16-63) U/L Alkaline Phosphatase 79 (46-116) U/L Creatine Kinase 238 (39-308) U/L Total Protein 7.4 (6.4-8.2) g/dL Albumin 3.3 L (3.4-5.0) g/dL 03/02/19 Range/Units 13:39 WBC (4.4-10.8) k/cumm RBC (4.50-6.00) m/cumm Hgb (13.5-17.5) g/dL Hct (40.0-50.0) % MCV (80-95) fL MCH (27.0-33.0) pg MCHC (32.0-36.0) g/dL RDW (11.8-14.1) % Plt Count (130-400) x1000/uL MPV (8.0-11.0) fL Immature Gran % % Neutrophils % Lymphocytes % Monocytes % Eosinophils % Basophils % Absolute Neutrophils (1.2-6.7) k/cumm Absolute Lymphocytes (1.2-3.4) k/cumm Absolute Monocytes (0.11-0.7) k/cumm Absolute Eosinophils (0.0-0.7) k/cumm Absolute Basophils (0.0-0.2) k/cumm Carboxyhemoglobin % Cancelled Sodium (136-145) mmol/L Potassium (3.5-5.1) mmol/L Chloride (98-107) mmol/L Carbon Dioxide (21.0-32.0) mmol/L Anion Gap (3-11) mmol/L BUN (7-18) mg/dL Creatinine (0.70-1.30) mg/dL Estimated GFR/1.73 m2 (mL/min/1.73m2) Glucose (74-106) mg/dL Calcium (8.5-10.1) mg/dL Magnesium (1.8-2.4) mg/dL Total Bilirubin (0.2-1.0) mg/dL AST (15-37) U/L ALT (16-63) U/L Alkaline Phosphatase (46-116) U/L Creatine Kinase (39-308) U/L Total Protein (6.4-8.2) g/dL Albumin (3.4-5.0) g/dL ECG Data Attestation: I personally reviewed and interpreted this ECG (s) as follows: Prior ECG tracings: available for review Interpretation: NSR. No significant ectopy or acute ST changes HPI 49-year-old gent with a past medical history which includes chronic back pain/chronic pain. Brought to the emergency read by an acquaintance after he was found being altered this morning. He is somnolent on arrival. According to the patient, without heat or water at his house and also has had multiple falls with head impact over the past few days. He denies fever/chills, headache, chest pain, dyspnea, abdominal pain. He has had no recent change in bowel habit, melena, hematochezia. Denies urinary symptoms. He has no focal extremity weakness. He denies any drug abuse or ingestion. General Date/Time Provider Initiated Documentation: 03/02/19 13:02 . Related Data Home Medications Medication Instructions Recorded Confirmed acetaminophen 500 mg capsule 1,000 mg PO QID PRN cap 05/06/18 03/02/19 ibuprofen 200 mg tablet 800 mg PO TID-QID PRN tab 05/06/18 03/02/19 Allergies Allergy/AdvReac Type Severity Reaction Status Date / Time duloxetine AdvReac Severe Other (See Verified 03/02/19 14:36 Comment) gabapentin AdvReac Intermediate Unverified 03/02/19 14:36 General Stated Complaint: AMS/LOC JOSEMANUEL: 2 Review of Systems All systems reviewed & are unremarkable except as noted in HPI and below PFSH Medical History Back pain (Acute) Eye injury (Acute) Leg pain, posterior (Acute) Low back pain (Acute) Lumbar pars defect (Acute) Pain of left scapula (Acute) Right leg pain (Acute) Right thigh pain (Acute) Spine pain (Acute) Thoracic back pain (Acute) Surgical History H/O discectomy (Acute) Social History Smoking/Tobacco Use Status: Current every day Tobacco Type: cigarettes Alcohol Intake: never Drug use: Rarely Substance use type: marijuana, heroin and other Details: Pt states he used herion yesterday. Fentanyl 5 days ago. Household members: children and friend(s) Housing: house What is your relationship status?: Panel score (0-1 are the most socially isolated patients): 0 What type of physical activity do you participate in: additional Details: [employer] Method stretches Do you feel safe at home: Yes Do you feel safe in your relationship?: Yes Additional Social history: above per chart history. Unable to answer privately Exam Narrative Exam Narrative: Nursing note and vital signs have been reviewed and noted. GENERAL: alert, somnolent responding to yes/no questions HEENT: atraumatic/normocephalic, PERRLA, EOMI, conjunctiva clear, external ears/canals normal, nasal mucosa normal NECK: supple, full range of motion, no mass, normal lymphadenopathy, no thyromegaly CARDIOVASCULAR: RRR, no murmurs, nl pulses, no edema PULMONARY: nl effort, no audible wheezing or stridor, nl breath sounds with no focal deficit. no chest wall tenderness ABDOMEN: soft, non-tender, non-distended, no mass, no organomegaly EXTREMITY: normal muscle tone, all joints with FROM, no deformity or tenderness SKIN: no exanthem appreciated NEURO: gross motor exam normal, normal stance and gait PSYCH: alert, somnolent, oriented to person and place Course Vital Signs Vital signs: Vital Signs Temperature 98.2 F 03/02/19 13:10 Pulse 78 03/02/19 13:10 Respiratory Rate 28 H 03/02/19 13:10 Blood Pressure 99/73 L 03/02/19 13:10 Pulse Oximetry 99 03/02/19 13:10 Temperature 98.2 F 03/02/19 13:10 Temperature Source Skin 03/02/19 13:10 Pulse 60 03/02/19 13:16 Pulse 80 03/02/19 13:20 Respiratory Rate 21 03/02/19 13:20 Blood Pressure 136/64 03/02/19 13:16 Blood Pressure Mean 82 03/02/19 13:16 Blood Pressure Position Sitting 03/02/19 13:10 Pulse Oximetry 97 03/02/19 13:20 Oxygen Delivery Method Room Air 03/02/19 13:10 Oxygen Flow Rate 0 03/02/19 13:10
[2019-03-02] MEDS: Normal Saline 1,000 ML 1000 ML IV (13:33)
[2019-03-02 13:43] LABS: Abs Immature Grans 0.01 k/cumm (0.0-0.09); Absolute Basophil Count 0.01 k/cumm (0.0-0.2); Absolute Eosinophil Count 0.02 k/cumm (0.0-0.7); Absolute Lymphocyte Count 0.84 k/cumm (1.2-3.4); Absolute Monocyte Count 0.53 k/cumm (0.11-0.7); Absolute Neutrophil Count 7.51 k/cumm (1.2-6.7); Basophils % 0.1; Eosinophils % 0.2; HCT 40.6 % (40.0-50.0); Immature Grans % 0.1 %; Lymphocytes % 9.4; Mean Corp. HGB Concentration 34.5 g/dL (32.0-36.0); Mean Corpuscular Hemoglobin 30.4 pg (27.0-33.0); Mean Corpuscular Volume 88.3 fL (80-95); Mean Platelet Volume 9.4 fL (8.0-11.0); Monocytes % 5.9; Neutrophils % 84.3; Platelet Count 349 x1000/uL (130-400); RBC Distribution Width 13.3 % (11.8-14.1); White Blood Cell Count 8.92 k/cumm (4.4-10.8)
[2019-03-02 13:55] LABS: ALT 19 U/L (16-63); AST 14 U/L (15-37); Albumin 3.3 g/dL (3.4-5.0); Alkaline Phosphatase 79 U/L (46-116); Anion Gap 8.4 mmol/L (3-11); BUN 19 mg/dL (7-18); Bilirubin, Total 0.3 mg/dL (0.2-1.0); CO2 30.6 mmol/L (21.0-32.0); CREATININE 0.91 mg/dL (0.70-1.30); Calcium 9.2 mg/dL (8.5-10.1); Chloride 104 mmol/L (98-107); Glucose 98 mg/dL (74-106); Magnesium 1.9 mg/dL (1.8-2.4); Potassium 4.1 mmol/L (3.5-5.1); Sodium 143 mmol/L (136-145); Total Protein 7.4 g/dL (6.4-8.2)
[2019-03-02 14:11] LABS: Creatine Kinase 238 U/L (39-308)
== END 2019-03-02 16:04 | disposition home or self-care (01) ==
PROVIDERS: Emergency Provider Emergency Medicine; PCP General Practice
DX: R41.82 Altered mental status, unspecified (principal); R40.0 Somnolence; R29.6 Repeated falls; F11.10 Opioid abuse, uncomplicated
CPT/HCPCS: 36415; 80053; 82375; 82550; 93005; 96360; 99284; 83735; 85025; 93010

== ENCOUNTER 2019-04-06 11:06 | Outpatient (REF) | payer MEDICAID, SELFPAY ==
[2019-04-08 09:50] LABS: HIV-1/2 Ag & Ab Screen Negative (Negative)
[2019-04-08 09:53] LABS: HBs Antibody, Quant <3.1 mIU/mL (See Note); Hepatitis B Surface Ab Negative (See Note)
[2019-04-08 10:11] LABS: Hepatitis B Surface Ag Negative (Negative)
[2019-04-08 11:42] LABS: Hepatitis C Ab w Rflx HCV PCR Negative (Negative)
[2019-04-08 11:43] LABS: Hep A Total Ab w Rflx IgM Negative (Negative); Hep B Core Antibody Negative (Negative)
== END 2019-04-06 11:26 ==
LOC: NCHCN 11:06
PROVIDERS: PCP General Practice; Visit Provider Family Medicine
DX: F11.10 Opioid abuse, uncomplicated (principal); Z11.4 Encounter for screening for human immunodeficiency virus [HIV]; Z11.59 Encounter for screening for other viral diseases
CPT/HCPCS: 86704; 86706; 86709; 86787; 86803; 87340; 87389

== ENCOUNTER 2019-10-15 17:23 | Emergency (ER) | payer MEDICAID, SELFPAY ==
[2019-10-15 17:27] VITALS: BP 112/67; PULSE 54; RESP 18; TEMP 36.1; O2SAT 100
--- NOTE | 2019-10-15 17:49 | W.ED.GENAD ---
Discharge Plan Disposition Patient Disposition: [facility] Condition: Stable Discharge Details Chief Complaint: DrugWithdr/MAT Clinical Impression: Drug abuse Primary Care Provider: Alex Cummins ED Provider: Isaura Gong Home Meds and New Rx's Prescriptions: No Action No Known Home Meds RF: 0 Discharge Instructions Instructions: Polysubstance Abuse (ED) Additional Instructions: Follow up with primary care provider in 3-5 days. Return to ED sooner if any worsening or concerns. Increase oral fluids.. Go directly [facility]. Referrals: Alex Cummins MD [Primary Care Provider] - Discharge Data Discharge Date/Time-TO BE ENTERED AT DEPARTURE: 10/15/19 18:10 Medical Decision Making 29-year-old male presents to the ER and please custody for medical clearance. Patient reports 10 bags of heroin and fentanyl and cocaine last evening. He appears intoxicated. He has pinpoint pupils bilaterally which are sluggish to light. Lungs are clear to auscultation bilaterally. He does have excoriations to his extremities. Denies any nausea vomiting diarrhea or fever chills. At this time. Should not appears to be under the influence does not appear to be withdrawing. Will be discharged from department in police custody. At this time I do feel that patient is medically clear. HPI General Mode of arrival: EMS. Date/Time Provider Initiated Documentation: 10/15/19 17:40. Limitations to Documentation: no limitations. Information obtained by: patient. HPI Narrative: 29-year-old male presents to the ER and please custody for medical clearance. Patient reports 10 bags of heroin and fentanyl and cocaine last evening. He appears intoxicated. He has pinpoint pupils bilaterally which are sluggish to light. Lungs are clear to auscultation bilaterally. He does have excoriations to his extremities. Denies any nausea vomiting diarrhea or fever chills. Related Data Home Medications Medication Instructions Recorded Confirmed Unknown [No Known Home Meds] 10/15/19 10/15/19 Allergies Allergy/AdvReac Type Severity Reaction Status Date / Time duloxetine AdvReac Severe Other (See Verified 10/15/19 17:35 Comment) gabapentin AdvReac Intermediate Unverified 10/15/19 17:35 General Stated Complaint: DrugWithdr/MAT JOSEMANUEL: 3 Review of Systems Narrative: Constitutional: Negative for weight loss, alert and oriented, disheveled, thin l body habitus, intoxicated. HEENT: Denies trauma, headaches, blurry vision, nasal discharge, sore throat, trouble swallowing. Chest: Denies chest pain, palpitations, irregular rhythm, hypertension. Respiratory: Denies Shortness of breath, cough, hemoptysis. GI: Denies abdominal pain, nausea, vomiting, diarrhea, constipation. : Denies dysuria, hematuria, flank pain, rectal bleeding. Neuro: Denies dizziness, blurry vision, weakness, syncope, headache or facial numbness. Hematologic: Denies easy bruising, intolerance to heat or cold, hair loss. [facility] Medical History Back pain (Acute) Eye injury (Acute) Leg pain, posterior (Acute) Low back pain (Acute) Lumbar pars defect (Acute) Pain of left scapula (Acute) Right leg pain (Acute) Right thigh pain (Acute) Spine pain (Acute) Thoracic back pain (Acute) Surgical History H/O discectomy (Acute) Social History Smoking/Tobacco Use Status: Current every day Tobacco Type: cigarettes Alcohol Intake: never Drug use: Daily Substance use type: marijuana, crack/cocaine, heroin and other Household members: children and friend(s) Housing: house What is your relationship status?: Panel score (0-1 are the most socially isolated patients): 0 What type of physical activity do you participate in: additional Details: [employer] stretches Do you feel safe at home: Yes Do you feel safe in your relationship?: Yes Additional Social history: above per chart history. Unable to answer privately Exam Narrative Exam Narrative: Constitutional: Alert and oriented x3. Does appear intoxicated, sleepy. Patient states he was doing heroin today and methadone. He is afraid of withdrawing Head: Normocephalic, no trauma. Eyes: Pupils 2 mm bilaterally round, equal sluggish to light, Red reflex noted, EOM's intact. Eyelids symmetrical without lesions, discharge, or swelling. ENT: Bilateral TM's WNL, External ear normal to inspection, no mastoid TTP, swelling, or erythema, Nasal turbinates WNL, no nasal discharge. Normal dentition, Posterior pharynx WNL, no exudate. Chest: RRR, Normal S1, S2, distal pulses intact. Resp: Lungs clear to auscultation bilaterally, no wheezes, rales, or rhonchi. Musculoskeletal: Normal gait, 5/5 strength to all four extremities. Skin: Has multiple excoriations noted pick schwartz to his arms ,capillary refill less than 2 sec. Neurologic: Cranial nerves II-XII intact. Alert and oriented x 3. DTR's intact. Hematologic/Lymphatic: No ecchymosis, no lymphadenopathy. Course Vital Signs Vital signs: Vital Signs Temperature 36.1 C L 10/15/19 17:27 Pulse 54 L 10/15/19 17:27 Respiratory Rate 18 10/15/19 17:27 Blood Pressure 112/67 10/15/19 17:27 Pulse Oximetry 100 10/15/19 17:27 Temperature 36.1 C L 10/15/19 17:27 Temperature Source Temporal Artery Scan 10/15/19 17:27 Pulse 54 L 10/15/19 17:27 Respiratory Rate 18 10/15/19 17:27 Respiratory Effort Non-Labored 10/15/19 17:34 Respiratory Pattern Normal 10/15/19 17:37 Blood Pressure 112/67 10/15/19 17:27 Blood Pressure Position Sitting 10/15/19 17:27 Pulse Oximetry 100 10/15/19 17:27 Oxygen Delivery Method Room Air 10/15/19 17:27 Oxygen Flow Rate 0 10/15/19 17:27
[2019-10-15 18:10] VITALS: BP 116/64; PULSE 58; RESP 16; TEMP 36.1; O2SAT 99
== END 2019-10-15 18:10 | disposition home or self-care (01) ==
LOC: ER 18:16
PROVIDERS: Emergency Provider Registered Nurse Emergency; PCP General Practice
DX: F11.120 Opioid abuse with intoxication, uncomplicated (principal)
CPT/HCPCS: 99285; 99284

== ENCOUNTER 2019-12-13 12:23 | Outpatient (REF) | payer MEDICAID, SELFPAY ==
[2019-12-13 13:00] LABS: HCT 42.5 % (40.0-50.0); HGB 14.1 g/dL (13.5-17.5); MCH 30.1 pg (27.0-33.0); MCHC 33.2 % (32.0-36.0); MCV 90.8 fL (80-95); MPV 9.7 fL (8.0-11.0); Platelet Count 366 10^3/uL (130-400); RBC 4.68 10^6/uL (4.36-5.78); RDW 14.5 % (11.8-14.1); RDW-SD 48.2 fL; WBC 5.24 10^3/uL (4.4-10.8)
[2019-12-13 13:56] LABS: ALT 25 U/L (16-63); AST 13 U/L (15-37); Albumin 3.9 g/dL (3.4-5.0); Alkaline Phosphatase 80 U/L (46-116); Anion Gap 7.9 mmol/L (3-11); BUN 10 mg/dL (7-18); Bilirubin, Total 0.4 mg/dL (0.2-1.0); CO2 28.1 mmol/L (21.0-32.0); CREATININE 0.91 mg/dL (0.70-1.30); Calcium 9.3 mg/dL (8.5-10.1); Calculated LDL 101 mg/dL (<100); Chloride 104 mmol/L (98-107); Cholesterol 183 mg/dL (<200); GGT 43 U/L (15-85); Glucose 100 mg/dL (74-106); HDL Cholesterol 65 mg/dL (40-60); Potassium 4.6 mmol/L (3.5-5.1); Sodium 140 mmol/L (136-145); Total Protein 7.6 g/dL (6.4-8.2); Triglyceride 86 mg/dL (<150)
[2019-12-14 10:23] LABS: Syphilis Serology (RPR) Negative (Negative)
[2019-12-14 11:23] LABS: Hepatitis B Surface Ag Negative (Negative)
[2019-12-14 11:58] LABS: HIV-1/2 Ag & Ab Screen Negative (Negative)
[2019-12-14 12:01] LABS: Hep A Total Ab w Rflx IgM Negative (Negative)
[2019-12-14 12:11] LABS: Hepatitis C Ab w Rflx HCV PCR Negative (Negative)
[2019-12-14 15:37] LABS: Chlamydia Result Negative (Negative); GC Result Negative (Negative)
== END 2019-12-13 12:43 ==
LOC: LBN 12:23
PROVIDERS: PCP General Practice; Visit Provider Family Medicine
DX: F11.20 Opioid dependence, uncomplicated (principal); Z11.4 Encounter for screening for human immunodeficiency virus [HIV]; Z11.59 Encounter for screening for other viral diseases; Z11.3 Encounter for screening for infections with a predominantly sexual mode of transmission; Z13.220 Encounter for screening for lipoid disorders
CPT/HCPCS: 80053; 80061; 85027; 86709; 86803; 87340; 87389; 87491; 87591; 82977; 86592